=== PATIENT | male | born 1950 | race Caucasian/White ===

== ENCOUNTER 2022-04-13 13:49 | Inpatient (IN) | payer SELFPAY ==
[~2022-04-13] VITALS: Ht 167.6 cm; Wt 60.8 kg
[2022-04-13 14:00] VITALS: BP_SYST 133
--- NOTE | 2022-04-13 14:00 | NUR ---
PATIENT BIBA FROM [facility] IN ROOM 2 ON DIRECTOR SECURITY RISK MANAGEMENT, ST EDP MADE AWARE AWAITING FOR ORDER.
--- NOTE | 2022-04-13 14:07 | NUR ---
Placed in room 2 . Placed on hall monitor, blood pressure machine and pulse oximeter. To gown for exam. Side rails up. Report given to
[2022-04-13 15:21] LABS: BASOPHILS % (AUTO) 0.7 % (0.0-2.0); EOSINOPHILS % (AUTO) 0.7 % (0.0-4.0); HEMATOCRIT 42.4 % (36-54); LYMPHOCYTES # (AUTO) 0.5 K/uL (1.0-5.5); LYMPHOCYTES % (AUTO) 23.3 % (20.5-51.5); MEAN CORPUSCULAR VOLUME 106 fL (79.0-98.0); MONOCYTES # (AUTO) 0.4 K/uL (0.0-1.0); MONOCYTES % (AUTO) 17.1 % (1.7-9.3); NEUTROPHILS # (AUTO) 1.4 K/uL (1.8-7.7); NEUTROPHILS % (AUTO) 58.2 % (40.0-70.0); PLATELET COUNT (AUTO) 182 K/uL (130-430); RED BLOOD CELL COUNT(AUTO) 4.01 MIL/uL (4.2-6.2); RED CELL DISTRIBUTION WIDTH 13.7 % (9.0-15.0); WHITE BLOOD COUNT (AUTO) 2.4 K/uL (4.8-10.8)
[2022-04-13 15:24] LABS: ANION GAP 8 (5-15); CALCIUM 9.6 mg/dL (8.4-11.0); CHLORIDE 100 mmol/L (98-107); GLUCOSE 100 mg/dL (70-99); POTASSIUM 4.1 mmol/L (3.5-5.1); UREA NITROGEN, BLOOD 16 mg/dL (8-21)
[2022-04-13 15:25] LABS: GFR AFRICAN AMERICAN 95 mL/min (>90)
[2022-04-13 15:26] LABS: ACETONE, SERUM NEGATIVE (NEGATIVE)
[2022-04-13 15:27] LABS: INR 1.9 (0.80-1.20)
[2022-04-13 15:32] LABS: ALANINE AMINOTRANSFERASE 29 U/L (12-78); ALBUMIN 3.5 g/dL (3.4-4.8); ASPARTATE AMINOTRANSFERASE 32 U/L (10-37); C-REACTIVE PROTEIN QUANT 5.7 mg/dL (0-0.5); TOTAL BILIRUBIN 2.5 mg/dL (0.0-1.0)
[2022-04-13 15:33] LABS: ACETAMINOPHEN < 1 ug/mL (1-30); ALCOHOL, BLOOD < 3 mg/dL (<10)
--- NOTE | 2022-04-13 17:07 | NUR ---
PATIENT ADMITTED TO DR LILLIAN IBRAHIM, AWAITING FOR BED ASSIGNMENT.
--- NOTE | 2022-04-13 17:27 | NUR ---
Admit bed requested Patient will be admitted to care of . Admitted to MEDSURG unit. Diagnosis ALOC Inpatient (Yes or No) Y Observation (Yes or No) N Orientation concerns or request close to nursing station (Yes or No) N Covid Status NEG On vent or bipap NO Isolation requirements NO Needs a sitter N From Home (Yes or if No enter name of facility) HOMELESS Requires Dialysis (Yes or No) N Med Rec Completed (Yes of No) Y
[2022-04-13] MEDS ORDERED: ACETAMINOPHEN 325 MG TABLET PO PRN ×2 (17:45)
[2022-04-13] MEDS ORDERED: HYDROcodone/ACETAMIN 10-325 MG TAB PO PRN (17:45)
[2022-04-13] MEDS ORDERED: HYDROcodone/ACETAMIN 5-325 MG TAB (NORCO/ VICODIN) PO PRN (17:45)
[2022-04-13] MEDS ORDERED: NALOXONE HCL 0.4 MG/ML AMP (NARCAN) IVP PRN ×2 (17:45)
[2022-04-13] MEDS ORDERED: ONDANSETRON HCL 4 MG/2 ML VIAL IVP PRN (17:45)
--- NOTE | 2022-04-13 18:19 | NUR ---
PATIENT INSTRUCTED WINSOME VOID IN URINAL FOR LAB.
--- NOTE | 2022-04-13 18:45 | NUR ---
Chalino sandoval in [facility] - 04/13/22 at 1846 by [id number] G 8 P 4 CURRENTLY 5 WEEKS HAVING LEFT ABD PAIN
[2022-04-13 20:11] LABS: BILIRUBIN,URINE NEGATIVE (NEGATIVE); COLOR,URINE YELLOW (YELLOW); GLUCOSE,URINE NEGATIVE (NEGATIVE); KETONES,URINE TRACE (NEGATIVE); NITRITE, URINE NEGATIVE (NEGATIVE); PROTEIN URINE TRACE (NEGATIVE)
[2022-04-13 20:22] LABS: BLOOD, URINE TRACE (NEGATIVE); CLARITY/URINE HAZY (CLEAR); LEUKOCYTE ESTERASE ,URINE 2+ (NEGATIVE)
[2022-04-13 20:23] LABS: BARBITURATE, URINE NEGATIVE (NEG <=200); BENZODIAZEPINE, URINE NEGATIVE (NEG <=150); CANNABINOID, URINE NEGATIVE (NEG <=50); COCAINE, URINE NEGATIVE (NEG <=150); METHAMPHETAMINES SCREEN,URINE NEGATIVE (NEG <=500); OPIATE, URINE NEGATIVE (NEG <=100); PHENCYCLIDINE SCREEN,URINE NEGATIVE (NEG <=25); RBC,URINE NONE SEEN /HPF (0-3); UR TRICYCLIC ANTIDEPRESSANTS NEGATIVE (NEG <=300); URINE AMPHETAMINE NEGATIVE (NEG <=500); URINE METHADONE NEGATIVE (NEG <=200); URINE OXYCODONE SCREEN NEGATIVE (NEG <=100); URINE PROPOXYPHENE SCREEN NEGATIVE (NEG <=300); URINE SULFO SALICYLIC ACID NEGATIVE (NEGATIVE)
[2022-04-13 20:24] LABS: BACTERIA,URINE FEW /HPF (None Seen); MUCUS,URINE None Seen /LPF (None Seen); WBC,URINE 20-50 /HPF (0-3)
--- NOTE | 2022-04-13 20:46 | NUR ---
REVEIVED IN BED CONFUSED INCOHERENT , DENIES PAIN WHEN ASSESSED, URINE SAMPLE SENT ORDERED, V/S STABLE WILL CONTINUE TO MONITOR
[2022-04-13] MEDS: NORMAL SALINE 5 ML DISP.SYRIN IVF SCH (22:00)
[2022-04-14 02:30] VITALS: BP_SYST 117
[2022-04-14 06:00] VITALS: BP_SYST 112
--- NOTE | 2022-04-14 06:27 | NUR ---
SEND A MESSAGE TO DR. DESIREE Morales REGARDING THE CONSULTATION
--- NOTE | 2022-04-14 07:15 | NUR ---
SBAR REPORT RECEIVED FROM BRENDA DEL ANGEL, ALL CARES ASSUMED. PT LAYING IN BED WITH EYES CLOSED. BED IN LOW AND LOCKED POSITION. CALL LIGHT WITHIN REACH.
[2022-04-14 07:51] LABS: BASOPHILS % (AUTO) 1.3 % (0.0-2.0); EOSINOPHILS % (AUTO) 1.8 % (0.0-4.0); HEMATOCRIT 39.9 % (36-54); LYMPHOCYTES # (AUTO) 0.6 K/uL (1.0-5.5); LYMPHOCYTES % (AUTO) 24.3 % (20.5-51.5); MEAN CORPUSCULAR VOLUME 105 fL (79.0-98.0); MONOCYTES # (AUTO) 0.5 K/uL (0.0-1.0); MONOCYTES % (AUTO) 23.7 % (1.7-9.3); NEUTROPHILS # (AUTO) 1.1 K/uL (1.8-7.7); NEUTROPHILS % (AUTO) 48.9 % (40.0-70.0); PLATELET COUNT (AUTO) 174 K/uL (130-430); RED CELL DISTRIBUTION WIDTH 13.5 % (9.0-15.0); WHITE BLOOD COUNT (AUTO) 2.3 K/uL (4.8-10.8)
[2022-04-14 08:00] VITALS: BP_SYST 114
[2022-04-14 08:25] LABS: CALCIUM 9.3 mg/dL (8.4-11.0); CREATININE 0.99 mg/dL (0.55-1.30); PHOSPHORUS 3.6 mg/dL (2.7-4.5); POTASSIUM 4.9 mmol/L (3.5-5.1); TOTAL BILIRUBIN 1.8 mg/dL (0.0-1.0)
--- NOTE | 2022-04-14 09:39 | NUR ---
EVALUATION COMPLETED. SEE FOR DETAILS. NURSING SHOULD AMBULATE THE PATIENT WITH THE FWW.
[2022-04-14 11:34] VITALS: BP_SYST 98
[2022-04-14] MEDS: cefTRIAXone 1 GM in D5W 50 ML IV SCH (12:00)
--- NOTE | 2022-04-14 13:19 | NUR ---
Cap And Hat Production Supervisor PARACHUTE PANEL JOINER received several referrals re. this Homeless pt. PARACHUTE PANEL JOINER met with pt. who was in bed, pleasant, soft spoken, but unable to formulate meaningful statements. Pt. looked clean, teeth looked maintained and clean. Pt. had a rip in his t-shirt and two plastic bags with some clothing. Initially, pt. was not able to state his name, then he said his name was Sd. Later in the interview pt. was able to say his name was Sd Ferrera. During this interview, pt. would mumble, say two word sentences that did not pertain to the questions asked. Pt. did mumble he stays with a friend and other times in the interview, pt stated he stays in the streets. One last time pt. stated he stays in the trees. Pt. could not name any relatives or friends. Pt. stated he was not and did not have any kids. It is questionable if pt. comprehends all of PARACHUTE PANEL JOINER's questions as pt. appears confused. PARACHUTE PANEL JOINER looked up a Sd Ferrera in the [facility] and found one. In 11/16/2013 a Sd Ferrera was 75 years of age with a of [birth year], also homeless, no contacts. This could be the same patient. PARACHUTE PANEL JOINER will met with pt. again to attempt to gather more info. Addendum: 04/14/22 at 1412 by Deloris Patel PARACHUTE PANEL JOINER Cap And Hat Production Supervisor PARACHUTE PANEL JOINER met again with pt. at bedside. Pt was awake and willing to talk to PARACHUTE PANEL JOINER. PARACHUTE PANEL JOINER asked pt. if he knew where he was, pt shook his head no. PARACHUTE PANEL JOINER asked pts. name and pt. did not reply. PARACHUTE PANEL JOINER asked pt. if there was someone she could call for him. Pt stated, "What is this about?" PARACHUTE PANEL JOINER explained she was trying to find out if he had any friends or family who could be contacted. Pt. was unable to provide any names or numbers of any friends or family. When PARACHUTE PANEL JOINER asked for his permission to look into his two plastic grocery bags to see if he had any id, pt. said, "Wait what is this about" then Pt. did not agree to allow PARACHUTE PANEL JOINER to go through his bags. Pt. continued to talk in circles and did not make sense. PARACHUTE PANEL JOINER left some homeless resources for pt. in event he becomes an AMA, but PARACHUTE PANEL JOINER does not feel this pt. should be discharged to the streets or sent to a long-term due his limited skills and cognition. PARACHUTE PANEL JOINER placed a homeless waiver in pts. chart. PARACHUTE PANEL JOINER spoke to manager athletics. Chona to ask if the Rn can go throught the pts belongings once he falls asleep to see if he has any identifying info. PARACHUTE PANEL JOINER will remain available as needed.
[2022-04-14] MEDS: NORMAL SALINE 5 ML DISP.SYRIN IVF SCH ×4 (14:00→22:00)
[2022-04-14 15:25] VITALS: BP_SYST 100
--- NOTE | 2022-04-14 19:41 | NUR ---
SBAR REPORT GIVEN TO NIGHT RN, ALL CARES ENDORSED.
[2022-04-14 20:00] VITALS: BP_SYST 105
[2022-04-15] VITALS: BP_SYST 102
[2022-04-15] MEDS: NORMAL SALINE 5 ML DISP.SYRIN IVF SCH ×6 (06:00→22:00)
--- NOTE | 2022-04-15 09:26 | NUR ---
PATIENT WALKING IN THE HALLWAY WITH Sheree FLORES USING FWW.
[2022-04-15 09:47] VITALS: BP_SYST 107
[2022-04-15 10:10] LABS: C-REACTIVE PROTEIN QUANT 2.3 mg/dL (0-0.5); CALCIUM 8.9 mg/dL (8.4-11.0); CREATININE 1.01 mg/dL (0.55-1.30); POTASSIUM 3.9 mmol/L (3.5-5.1)
[2022-04-15] MEDS: cefTRIAXone 1 GM in D5W 50 ML IV SCH (11:33)
--- NOTE | 2022-04-15 12:15 | NUR ---
DOUBLE END SEWER ACSW Jeanine met with patient at bedside to further support identifying patient and possible support network. Patient was observed to be mumbling at a whispered tone. ACSW asked patient if we can look in his belongings and he was heard to say "absolutely not". ACSW made attempts to engage patient, but he was not able to have meaningful engagement at this time. ACSW will continue to be available as needed.
[2022-04-15 13:48] LABS: BASOPHILS % (AUTO) 1.5 % (0.0-2.0); EOSINOPHILS # (AUTO) 0.1 K/uL (0.0-0.4); EOSINOPHILS % (AUTO) 2.7 % (0.0-4.0); HEMATOCRIT 38.4 % (36-54); LYMPHOCYTES # (AUTO) 0.7 K/uL (1.0-5.5); LYMPHOCYTES % (AUTO) 36.2 % (20.5-51.5); MEAN CORPUSCULAR VOLUME 105 fL (79.0-98.0); MONOCYTES # (AUTO) 0.4 K/uL (0.0-1.0); MONOCYTES % (AUTO) 20.2 % (1.7-9.3); NEUTROPHILS % (AUTO) 39.4 % (40.0-70.0); PLATELET COUNT (AUTO) 173 K/uL (130-430); RED BLOOD CELL COUNT(AUTO) 3.64 MIL/uL (4.2-6.2); RED CELL DISTRIBUTION WIDTH 13.6 % (9.0-15.0)
[2022-04-15 14:08] LABS: NEUTROPHILS # (AUTO) 0.8 K/uL (1.8-7.7)
[2022-04-15 15:13] LABS: ERYTHROCYTE SEDIMENTATION RATE 14 MM/HR (0-15)
[2022-04-15 17:34] VITALS: BP_SYST 126
--- NOTE | 2022-04-15 19:21 | NUR ---
PT ENDORSED TO NIGHT RN SERA, HAS BEEN STABLE THE WHOLE SHIFT. STILL UNABLE TO VERIFIED HIS NAME AND .
[2022-04-15 20:00] VITALS: BP_SYST 118
[2022-04-16] VITALS: BP_SYST 121
[2022-04-16] MEDS: NORMAL SALINE 5 ML DISP.SYRIN IVF SCH ×5 (06:23→22:42)
[2022-04-16 08:00] VITALS: BP_SYST 106
[2022-04-16 08:43] LABS: C-REACTIVE PROTEIN QUANT 2.3 mg/dL (0-0.5); CALCIUM 8.9 mg/dL (8.4-11.0); CREATININE 0.92 mg/dL (0.55-1.30); POTASSIUM 3.7 mmol/L (3.5-5.1)
[2022-04-16 09:08] LABS: BASOPHILS % (AUTO) 1.3 % (0.0-2.0); EOSINOPHILS % (AUTO) 1.5 % (0.0-4.0); HEMATOCRIT 40.2 % (36-54); LYMPHOCYTES # (AUTO) 0.9 K/uL (1.0-5.5); LYMPHOCYTES % (AUTO) 30.7 % (20.5-51.5); MEAN CORPUSCULAR VOLUME 105 fL (79.0-98.0); MONOCYTES # (AUTO) 0.4 K/uL (0.0-1.0); MONOCYTES % (AUTO) 14.3 % (1.7-9.3); NEUTROPHILS # (AUTO) 1.5 K/uL (1.8-7.7); NEUTROPHILS % (AUTO) 52.2 % (40.0-70.0); PLATELET COUNT (AUTO) 177 K/uL (130-430); RED BLOOD CELL COUNT(AUTO) 3.84 MIL/uL (4.2-6.2); RED CELL DISTRIBUTION WIDTH 13.3 % (9.0-15.0)
[2022-04-16] MEDS: LORazepam 2 MG/ML VIAL IVP PRN ×2 (10:15→14:57)
[2022-04-16 10:35] LABS: WHITE BLOOD COUNT (AUTO) 2.8 K/uL (4.8-10.8)
[2022-04-16] MEDS: cefTRIAXone 1 GM in D5W 50 ML IV SCH (11:50)
[2022-04-16 11:51] VITALS: BP_SYST 112
[2022-04-16 12:02] LABS: ERYTHROCYTE SEDIMENTATION RATE 23 MM/HR (0-15)
--- NOTE | 2022-04-16 13:23 | NUR ---
Developer Programmer DIRECTOR TRUST met with pt. today. Pt. was still in the same state as DIRECTOR TRUST's last interview, incoherent, did not know where he was, did not know his name, could not answer any of DIRECTOR TRUST's questions. Pt. refused to let DIRECTOR TRUST look for any picture ID in his belongings. DIRECTOR TRUST asked Rn if she can look through pts. belongings when he is sleeping. DIRECTOR TRUST called [facility], and asked if they had a mobile fingerprinting unit. They do not. DIRECTOR TRUST called [facility], to ask if they had a mobile fingerprinting unit and they do not. DIRECTOR TRUST called Joe from [facility] to see if he could be helpful. Joe asked DIRECTOR TRUST to look for and ID that may have been scanned upon pt coming to the ED. DIRECTOR TRUST stated there was a Sd Ferrera who came to [facility] 3 times in 2017. Joe will look to see if there is a picture for a Sd Ferrera . If there is a picture of Sd Ferrera, Joe can share with this DIRECTOR TRUST to see if it is indeed our Naveen Valdiviae. Addendum: 04/16/22 at 1421 by Deloris MONROY Developer Programmer DIRECTOR TRUST called the responding ambulance company that responded with the [facility]. The ambulance co. is [facility], . DIRECTOR TRUST spoke to Alanna who stated notes indicate pt. was found on the corner of [address] near the [facility] [place] [facility] holding onto a pole. No other info. was noted DIRECTOR TRUST spoke to Maurice the maple products supervisor for [facility] who stated Marco A Olivas is from the [facility] and he will pass along DIRECTOR TRUST's info in hopes Brendon could call with any helpful info. DIRECTOR TRUST called [facility], Paula Orlando, , Homeless Outreach. DIRECTOR TRUST left contact phone as Johanny was in a meeting.
[2022-04-16 16:44] VITALS: BP_SYST 117
--- NOTE | 2022-04-16 17:08 | NUR ---
Dietitian Recommendations * Continue Regular diet Please refer to nutrition assessment for details, thanks! Completed by: SAPNA CASTELLANOS Aircraft Quality Control Inspector
[2022-04-16 20:00] VITALS: BP_SYST 127
[2022-04-17] VITALS: BP_SYST 129
[2022-04-17] MEDS: LORazepam 2 MG/ML VIAL IVP PRN (05:14)
[2022-04-17] MEDS: NORMAL SALINE 5 ML DISP.SYRIN IVF SCH ×3 (05:15→22:00)
[2022-04-17 07:41] LABS: CALCIUM 8.9 mg/dL (8.4-11.0); CREATININE 0.9 mg/dL (0.55-1.30); POTASSIUM 4.2 mmol/L (3.5-5.1)
[2022-04-17 07:42] LABS: BASOPHILS % (AUTO) 1.1 % (0.0-2.0); EOSINOPHILS % (AUTO) 0.7 % (0.0-4.0); HEMATOCRIT 42.9 % (36-54); LYMPHOCYTES # (AUTO) 0.9 K/uL (1.0-5.5); MEAN CORPUSCULAR VOLUME 106 fL (79.0-98.0); MONOCYTES # (AUTO) 0.5 K/uL (0.0-1.0); MONOCYTES % (AUTO) 14.8 % (1.7-9.3); NEUTROPHILS # (AUTO) 2.1 K/uL (1.8-7.7); NEUTROPHILS % (AUTO) 58.4 % (40.0-70.0); PLATELET COUNT (AUTO) 175 K/uL (130-430); RED BLOOD CELL COUNT(AUTO) 4.04 MIL/uL (4.2-6.2); RED CELL DISTRIBUTION WIDTH 13.1 % (9.0-15.0); WHITE BLOOD COUNT (AUTO) 3.6 K/uL (4.8-10.8)
[2022-04-17 08:00] VITALS: BP_SYST 93
[2022-04-17 11:27] VITALS: BP_SYST 115
[2022-04-17 12:00] LABS: ERYTHROCYTE SEDIMENTATION RATE 28 MM/HR (0-15)
[2022-04-17] MEDS: cefTRIAXone 1 GM in D5W 50 ML IV SCH (12:00)
[2022-04-17 16:39] VITALS: BP_SYST 116
[2022-04-17 20:00] VITALS: BP_SYST 118
--- NOTE | 2022-04-18 06:00 | NUR ---
[id number] CONT. WITH STBLE VS. PT HS BEEN A/OX2-3. PT IS CONFUSE AT TIMES. PT AMB. TO BR WITH MINIMAL ASST. PT HAS BEEN VOIDING WELL/NO STOOL. PT SLEEPING AT TIMES. PT ENDORSED TO DAYSHIFT RN IN STABLE COND. ALEXANDRO DEL ANGEL
[2022-04-18 08:00] VITALS: BP_SYST 111
[2022-04-18 08:01] LABS: BASOPHILS % (AUTO) 1.3 % (0.0-2.0); EOSINOPHILS # (AUTO) 0.1 K/uL (0.0-0.4); EOSINOPHILS % (AUTO) 2.9 % (0.0-4.0); HEMATOCRIT 39.4 % (36-54); LYMPHOCYTES # (AUTO) 1.1 K/uL (1.0-5.5); LYMPHOCYTES % (AUTO) 37.5 % (20.5-51.5); MEAN CORPUSCULAR VOLUME 105 fL (79.0-98.0); MONOCYTES # (AUTO) 0.5 K/uL (0.0-1.0); MONOCYTES % (AUTO) 15.8 % (1.7-9.3); NEUTROPHILS # (AUTO) 1.3 K/uL (1.8-7.7); NEUTROPHILS % (AUTO) 42.5 % (40.0-70.0); PLATELET COUNT (AUTO) 163 K/uL (130-430); RED BLOOD CELL COUNT(AUTO) 3.75 MIL/uL (4.2-6.2); RED CELL DISTRIBUTION WIDTH 13.1 % (9.0-15.0)
[2022-04-18 08:02] LABS: ALBUMIN 2.8 g/dL (3.4-4.8); C-REACTIVE PROTEIN QUANT 9.1 mg/dL (0-0.5); CREATININE 0.81 mg/dL (0.55-1.30); POTASSIUM 4.7 mmol/L (3.5-5.1); TOTAL BILIRUBIN 1.3 mg/dL (0.0-1.0)
[2022-04-18 12:25] VITALS: BP_SYST 102
[2022-04-18] MEDS: cefTRIAXone 1 GM in D5W 50 ML IV SCH (12:34)
[2022-04-18 12:39] LABS: ERYTHROCYTE SEDIMENTATION RATE 33 MM/HR (0-15)
[2022-04-18] MEDS: NORMAL SALINE 5 ML DISP.SYRIN IVF SCH ×2 (14:00→23:21)
--- NOTE | 2022-04-18 15:52 | NUR ---
NEURO CONSULT DR RAMÍREZ WAS CALLED RE: TO INFORM THAT ADMINISTRATION HAS AGREED TO PAY HIS PROF FEE. SPOKE TO PREMA.
[2022-04-18 16:09] VITALS: BP_SYST 117
[2022-04-18 19:20] VITALS: BP_SYST 98
--- NOTE | 2022-04-18 19:20 | NUR ---
PM ASSESSMENT; -Pt is a/xo1, resting in bed. NO s/s any acute distress noted. IV site patent drsg cdi. Fall precaution in place. Call light w/in reach, side rails x3, bed alarmed. Places near Nurses' station. Educated and instructed pt how to use call light for assistance and not to get OOB without using call, unable to discuss plan of care d/t cognitive limitation. Cont to monitor pt.
[2022-04-18 23:21] VITALS: BP_SYST 104
--- NOTE | 2022-04-18 23:21 | NUR ---
ROUNDS; -Pt is resting in bed comfortably. NO s/s any pain,sob,or any acute distress noted. VSS. Bed alarmed, side rails x3, call light w/in reach. Cont to monitor pt.
--- NOTE | 2022-04-19 03:20 | NUR ---
ROUNDS; -Pt just got OOB w/out using a call light w/in reach. Assisted pt to bathroom and returned to bed safely. Bed alarmed, side rails x3, call light w/in reach. Cont to monitor pt.
[2022-04-19] MEDS: NORMAL SALINE 5 ML DISP.SYRIN IVF SCH ×3 (06:40→21:10)
--- NOTE | 2022-04-19 06:54 | NUR ---
CLOSING NOTES; -Pt awakes, sitting dangling feet in the bed eating snack. Pt refused to return to bed this time. Reminded pt to use call light whenever needs assistance, pt nodded head. Call light w/in reach, side rails x2. Will endorse to next nurse to cont care.
[2022-04-19 08:00] VITALS: BP_SYST 128
[2022-04-19 09:10] LABS: C-REACTIVE PROTEIN QUANT 5.1 mg/dL (0-0.5); CALCIUM 8.9 mg/dL (8.4-11.0); CREATININE 0.87 mg/dL (0.55-1.30); POTASSIUM 3.8 mmol/L (3.5-5.1)
[2022-04-19] MEDS: LORazepam 2 MG/ML VIAL IVP PRN (10:10)
[2022-04-19 11:45] VITALS: BP_SYST 116
[2022-04-19] MEDS: cefTRIAXone 1 GM in D5W 50 ML IV SCH (13:45)
[2022-04-19 14:10] LABS: BASOPHILS % (AUTO) 1.1 % (0.0-2.0); EOSINOPHILS # (AUTO) 0.1 K/uL (0.0-0.4); EOSINOPHILS % (AUTO) 4.3 % (0.0-4.0); HEMATOCRIT 38.6 % (36-54); LYMPHOCYTES # (AUTO) 0.8 K/uL (1.0-5.5); LYMPHOCYTES % (AUTO) 36.7 % (20.5-51.5); MEAN CORPUSCULAR VOLUME 104 fL (79.0-98.0); MONOCYTES # (AUTO) 0.3 K/uL (0.0-1.0); MONOCYTES % (AUTO) 15.3 % (1.7-9.3); NEUTROPHILS % (AUTO) 42.6 % (40.0-70.0); PLATELET COUNT (AUTO) 176 K/uL (130-430); RED CELL DISTRIBUTION WIDTH 13.5 % (9.0-15.0); WHITE BLOOD COUNT (AUTO) 2.2 K/uL (4.8-10.8)
[2022-04-19 15:20] VITALS: BP_SYST 120
[2022-04-19 17:16] LABS: ERYTHROCYTE SEDIMENTATION RATE 24 MM/HR (0-15)
[2022-04-19 19:15] VITALS: BP_SYST 107
--- NOTE | 2022-04-19 19:15 | NUR ---
PM ASSESSMENT; -Pt is off the craig soft wrist restraint this time. -Pt is a/xo1, resting in bed. NO s/s any acute distress noted. IV site patent drsg cdi. Fall precaution in place. Call light w/in reach, side rails x3, bed alarmed. Places near Nurses' station. Educated and instructed pt how to use call light for assistance and not to get OOB without using call, unable to discuss plan of care d/t cognitive limitation. Cont to monitor pt.
--- NOTE | 2022-04-19 22:05 | NUR ---
ROUNDS; -Pt is resting in bed comfortably. NO s/s any pain,sob,or any acute distress noted. Bed alarmed, side rails x3, call light w/in reach. Cont to monitor pt.
--- NOTE | 2022-04-20 00:22 | NUR ---
ROUNDS; -Pt got OOB to use bathroom w/o using call light. Assisting pt to bathroom, pt just voided and returned back to bed safely. NO s/s any pain,sob,or any acute distress noted. Pt is still confused and is not able to use call light d/t cognitive limitation. Bed alarmed, side rails x3, call light w/in reach. Cont to monitor pt.
[2022-04-20 00:49] VITALS: BP_SYST 95
--- NOTE | 2022-04-20 03:32 | NUR ---
ROUNDS; -Pt is asleep. NO s/s any pain,sob,or any acute distress noted. Bed alarmed, side rails x3, call light w/in reach. Cont to monitor pt.
[2022-04-20] MEDS: NORMAL SALINE 5 ML DISP.SYRIN IVF SCH ×3 (05:00→21:19)
--- NOTE | 2022-04-20 06:30 | NUR ---
ROUNDS; -Pt is asleep. NO s/s any pain,sob,or any acute distress noted. Fall precaution in place entire shift. Bed alarmed, side rails x3, call light w/in reach. Will endorse to next nurse to cont care.
[2022-04-20 07:30] VITALS: BP_SYST 122
--- NOTE | 2022-04-20 07:30 | NUR ---
OPEN NOTE Received report from nightshift nurse. Patient is laying in bed resting. No pain, no SOB, no distress noted. A/O x 1-2english speaking. Patient on RA sating 99%. IV to FFA 22g, patent on SL. Patient on bedrest . Call light within reach, bed locked in lowest position, all needs met at this time. Will continue to monitor.
[2022-04-20 11:34] VITALS: BP_SYST 132
--- NOTE | 2022-04-20 12:00 | NUR ---
Patient Rounds Patient is laying in bed resting. No pain, no SOB, no distress noted. Patient on RA sating 99%. IV to FFA 22g, patent on SL. Patient on bedrest . Call light within reach, bed locked in lowest position, all needs met at this time. Will continue to monitor.
[2022-04-20] MEDS: cefTRIAXone 1 GM in D5W 50 ML IV SCH (12:12)
--- NOTE | 2022-04-20 15:18 | NUR ---
Patient Rounds Patient is laying in bed resting. No pain, no SOB, no distress noted. Patient on RA sating 99%. IV to LFA 22g, patent on SL. Patient on bedrest . Call light within reach, bed locked in lowest position, all needs met at this time. Will continue to monitor.
[2022-04-20 15:29] VITALS: BP_SYST 108
[2022-04-20 15:51] LABS: BASOPHILS % (AUTO) 1.4 % (0.0-2.0); EOSINOPHILS # (AUTO) 0.1 K/uL (0.0-0.4); EOSINOPHILS % (AUTO) 3.5 % (0.0-4.0); HEMATOCRIT 37.6 % (36-54); LYMPHOCYTES # (AUTO) 0.9 K/uL (1.0-5.5); LYMPHOCYTES % (AUTO) 39.6 % (20.5-51.5); MEAN CORPUSCULAR VOLUME 106 fL (79.0-98.0); MONOCYTES # (AUTO) 0.3 K/uL (0.0-1.0); NEUTROPHILS # (AUTO) 1.1 K/uL (1.8-7.7); NEUTROPHILS % (AUTO) 44.5 % (40.0-70.0); PLATELET COUNT (AUTO) 189 K/uL (130-430); RED BLOOD CELL COUNT(AUTO) 3.54 MIL/uL (4.2-6.2); RED CELL DISTRIBUTION WIDTH 13.5 % (9.0-15.0); WHITE BLOOD COUNT (AUTO) 2.4 K/uL (4.8-10.8)
[2022-04-20 16:29] LABS: CALCIUM 8.9 mg/dL (8.4-11.0); CREATININE 0.78 mg/dL (0.55-1.30)
--- NOTE | 2022-04-20 18:37 | NUR ---
CLOSING NOTE Patient is laying in bed resting. No pain, no SOB, no distress noted. A/O x 1-2english speaking. Patient on RA sating 99%. IV to LFA 22g, patent on SL. Patient on bedrest but is able to ambulate with assistance to restroom. Call light within reach, bed locked in lowest position, all needs met at this time. Will endorse to cnc machinist 2nd shift nurse.
[2022-04-20 21:00] VITALS: BP_SYST 129
[2022-04-21 01:07] LABS: ERYTHROCYTE SEDIMENTATION RATE 16 MM/HR (0-15)
[2022-04-21 02:00] VITALS: BP_SYST 132
--- NOTE | 2022-04-21 03:33 | NUR ---
Hourly Rounding patient awake assist out of bed to Rest Room ambulates unsteady gait , FALL RISK measures implemented no SOB noted procedures explained skin dry warm Respirations Remain Regular also unlabored / .
--- NOTE | 2022-04-21 04:15 | NUR ---
Patient Rip out IV / left F/A
--- NOTE | 2022-04-21 06:05 | NUR ---
New IV start 22 GAUGE RIGHT F/A Tolerated site clean & dry patent flush well / good .
[2022-04-21] MEDS: NORMAL SALINE 5 ML DISP.SYRIN IVF SCH ×3 (06:44→21:52)
[2022-04-21 08:00] VITALS: BP_SYST 136
--- NOTE | 2022-04-21 08:00 | NUR ---
Initial Notes Patient is AOx1. Patient verbal but starts mumbling. Ambulatory. Confused. No s.s of distress noted. Breathing is even and nonlabored, on room air. Vital signs obtained, as documented. No SOB noted, no facial grimace noted. Denies pain. HOB elevated, patient is eating breakfast. Bed at lowest position, alarm on, and bed locked. Call light within reach.
[2022-04-21 08:04] LABS: BASOPHILS % (AUTO) 0.9 % (0.0-2.0); EOSINOPHILS # (AUTO) 0.1 K/uL (0.0-0.4); EOSINOPHILS % (AUTO) 4.4 % (0.0-4.0); HEMATOCRIT 37.4 % (36-54); LYMPHOCYTES % (AUTO) 44.5 % (20.5-51.5); MEAN CORPUSCULAR VOLUME 105 fL (79.0-98.0); MONOCYTES # (AUTO) 0.3 K/uL (0.0-1.0); MONOCYTES % (AUTO) 13.2 % (1.7-9.3); PLATELET COUNT (AUTO) 178 K/uL (130-430); RED BLOOD CELL COUNT(AUTO) 3.57 MIL/uL (4.2-6.2); RED CELL DISTRIBUTION WIDTH 13.3 % (9.0-15.0); WHITE BLOOD COUNT (AUTO) 2.4 K/uL (4.8-10.8)
[2022-04-21 08:25] LABS: ALBUMIN 2.8 g/dL (3.4-4.8); CALCIUM 8.3 mg/dL (8.4-11.0); CREATININE 0.82 mg/dL (0.55-1.30); POTASSIUM 4.7 mmol/L (3.5-5.1); TOTAL BILIRUBIN 0.6 mg/dL (0.0-1.0)
[2022-04-21 10:36] LABS: C-REACTIVE PROTEIN QUANT 1.9 mg/dL (0-0.5)
[2022-04-21 11:30] VITALS: BP_SYST 109
[2022-04-21 11:55] LABS: NEUTROPHILS # (AUTO) 0.9 K/uL (1.8-7.7)
--- NOTE | 2022-04-21 12:00 | NUR ---
Notes Patient resting in bed, awake. No s.s of distress noted. No facial grimace noted. Bed at lowest position, alarm on, and bed locked. Call light within reach.
[2022-04-21 13:07] LABS: ERYTHROCYTE SEDIMENTATION RATE 23 MM/HR (0-15)
--- NOTE | 2022-04-21 13:23 | NUR ---
Pointer Machine Operator THAW SHED HEATER TENDER met with pt. who was finishing up his lunch. Pt. was talking softly, barely audible. Today he said his name was Naveen Beaver. THAW SHED HEATER TENDER asked if there was someone she could call for him. Pt. was just mumbling. Pt. will not allow THAW SHED HEATER TENDER to look through his two plastic bags of belonging. THAW SHED HEATER TENDER asked Terri Rn is she could as Rn. Austin to look for an ID, once pt. falls asleep. Water Pollution Control Inspector will do so.
--- NOTE | 2022-04-21 14:56 | NUR ---
Wound Evaluation: Wound Consult ordered for Low Jesus Score. Patient evaluated for a low Jesus score of 18. Patient was awake, alert, confused, and received in a [place] Bed with an IsoFlex TERESA mattress. Patient needs reminders to turn in bed. Skin Assessment: 1. Right Parietal area: Wound from fall at residence, present on admission. Wound bed has 100% brown scab. No odor, no drainage, no erythema, no calor. Dry, stable. Scab measures 1.6 cm x 0.9 cm. Recommend: No dressing needed. Continue to monitor site qshift. 2. Right Anterior Knee: Multiple small dry excoriations, present on admission. No odor, no drainage, no erythema, no calor. Dry, stable. Recommend: No dressing needed. Continue to monitor site qshift. 3. Right Lateral Knee: Chronic wound with black scab, present on admission. No odor, no drainage, no erythema, no calor. Dry, stable. Recommend: No dressing needed. Continue to monitor site qshift. Also recommend: Encourage and assist patient as needed with repositioning every 2 hours with pillow support. Elevate, off-load and float bilateral heels with pillows. Offload pressure areas with pillows for pressure re-distribution. Perform skin care and monitor skin integrity Q shift. Use moisture barrier cream on moisture susceptible areas QID and PRN for soiling.
[2022-04-21 15:36] VITALS: BP_SYST 93
--- NOTE | 2022-04-21 16:11 | NUR ---
Notes Patient is resting, eyes closed. Breathing is even and nonlabored, on room air. Safety precautions in place. Exist alarm on. Call light within reach.
--- NOTE | 2022-04-21 19:29 | NUR ---
Closing Notes Patient finished dinner. Patient is resting in bed, eyes closed. No s.s of distress noted. Breathing is even and nonlabored, on room air. No facial grimace noted. No SOB. Denies pain. All needs met. Safety precautions in place and call light within reach. Report given to MER Mandel.
[2022-04-21 21:44] VITALS: BP_SYST 113
[2022-04-21] MEDS: CEFTAZIDIME 1 GM in D5W 50 ML IV SCH (21:53)
[2022-04-22 01:25] VITALS: BP_SYST 94
[2022-04-22 06:57] LABS: BASOPHILS % (AUTO) 1.2 % (0.0-2.0); EOSINOPHILS # (AUTO) 0.1 K/uL (0.0-0.4); EOSINOPHILS % (AUTO) 3.3 % (0.0-4.0); HEMATOCRIT 37.1 % (36-54); LYMPHOCYTES # (AUTO) 0.9 K/uL (1.0-5.5); MEAN CORPUSCULAR VOLUME 104 fL (79.0-98.0); MONOCYTES # (AUTO) 0.3 K/uL (0.0-1.0); MONOCYTES % (AUTO) 13.1 % (1.7-9.3); NEUTROPHILS % (AUTO) 43.4 % (40.0-70.0); PLATELET COUNT (AUTO) 181 K/uL (130-430); RED BLOOD CELL COUNT(AUTO) 3.57 MIL/uL (4.2-6.2); RED CELL DISTRIBUTION WIDTH 13.1 % (9.0-15.0); WHITE BLOOD COUNT (AUTO) 2.3 K/uL (4.8-10.8)
[2022-04-22] MEDS: NORMAL SALINE 5 ML DISP.SYRIN IVF SCH ×3 (06:59→22:03)
[2022-04-22 07:19] LABS: C-REACTIVE PROTEIN QUANT 0.9 mg/dL (0-0.5); CALCIUM 8.7 mg/dL (8.4-11.0); CREATININE 0.93 mg/dL (0.55-1.30); POTASSIUM 4.2 mmol/L (3.5-5.1)
[2022-04-22 08:00] VITALS: BP_SYST 115
[2022-04-22] MEDS: CEFTAZIDIME 1 GM in D5W 50 ML IV SCH ×2 (08:33→20:26)
[2022-04-22 08:41] LABS: ERYTHROCYTE SEDIMENTATION RATE 18 MM/HR (0-15)
[2022-04-22 12:00] VITALS: BP_SYST 112
[2022-04-22 16:00] VITALS: BP_SYST 111
[2022-04-22 20:00] VITALS: BP_SYST 97
[2022-04-23 00:34] VITALS: BP_SYST 133
[2022-04-23 03:36] VITALS: BP_SYST 160
--- NOTE | 2022-04-23 04:18 | NUR ---
PATIENT IN BED RESTING, VERBALIZED NO C/O PAIN, CONTINENT TO TOLIET AND URINAL OF BLADDER, AND NO BM DURING THIS SHIFT. PATIENT TOOK ALL MEDS DURING THIS SHIFT WITH NO DIFFICULTIES. PATIENT HAS NO NEW WOUNDS NOTED AT THIS TIME. PATIENT HAS DIFFICULTY EXPRESSING HIMSELF AT TIMES.
[2022-04-23] MEDS: NORMAL SALINE 5 ML DISP.SYRIN IVF SCH ×2 (05:11→14:00)
--- NOTE | 2022-04-23 07:31 | NUR ---
PHYSICAL THERAPY CO-SIGN The Physical Therapy Progress Notes documented by Squash Centre Manager have been reviewed. Reviewed/Co-Signed by: Vasquez Buchanan Documentation Done by: FRANCISCO PARRA PTA Addendum: 04/23/22 at 0731 by Vasquez Buchanan PT Amended: Links added.
[2022-04-23 07:53] LABS: BASOPHILS % (AUTO) 1.1 % (0.0-2.0); EOSINOPHILS # (AUTO) 0.1 K/uL (0.0-0.4); HEMATOCRIT 37.5 % (36-54); LYMPHOCYTES # (AUTO) 0.8 K/uL (1.0-5.5); LYMPHOCYTES % (AUTO) 28.8 % (20.5-51.5); MEAN CORPUSCULAR VOLUME 104 fL (79.0-98.0); MONOCYTES # (AUTO) 0.4 K/uL (0.0-1.0); NEUTROPHILS # (AUTO) 1.5 K/uL (1.8-7.7); NEUTROPHILS % (AUTO) 53.1 % (40.0-70.0); PLATELET COUNT (AUTO) 194 K/uL (130-430); RED BLOOD CELL COUNT(AUTO) 3.62 MIL/uL (4.2-6.2); RED CELL DISTRIBUTION WIDTH 13.1 % (9.0-15.0); WHITE BLOOD COUNT (AUTO) 2.8 K/uL (4.8-10.8)
[2022-04-23 08:00] VITALS: BP_SYST 119
[2022-04-23 08:00] LABS: CALCIUM 8.3 mg/dL (8.4-11.0); CREATININE 0.82 mg/dL (0.55-1.30); POTASSIUM 3.9 mmol/L (3.5-5.1)
--- NOTE | 2022-04-23 08:30 | NUR ---
RESTAURANT AND BAR MANAGER SHOSHANA Solorzano contacted [place] [employer] to obtain information/support with patient identification. ACSSyeda spoke to Fax Machine Operator on duty who shared they are unable to review any finger prints that would be brought in, and finger prints can only be taken on person's being detained by law enforcement. Fax Machine Operator stated he can "possibly" support if hospital can obtain a front facing picture of patient, police department can scan through facial recognition. Addendum: 04/23/22 at 1638 by Jeanine MONROY SHOSHANA Solorzano received pictures of patient and were emailed to [place] [employer] Fax Machine Operator [email or web address]
[2022-04-23] MEDS: CEFTAZIDIME 1 GM in D5W 50 ML IV SCH (08:51)
[2022-04-23 11:27] VITALS: BP_SYST 110
--- NOTE | 2022-04-23 12:51 | NUR ---
Capping Machine Operator PRESIDENT/GM PRODUCTION & LIVE EXPERIENCES Jorge and PRESIDENT/GM PRODUCTION & LIVE EXPERIENCES Stephenson went to meet with pt. to see if they could go through pts. 2 plastic grocery bags of belongings. Pt. was very on guard and quickly became upset when PRESIDENT/GM PRODUCTION & LIVE EXPERIENCES moved the rolling table (for trays of food). PRESIDENT/GM PRODUCTION & LIVE EXPERIENCES told pt. she wanted to move the table so she could get closer to him to hear him. Pt. tried to move the table to block the bedside table closed. Pt. does not want PRESIDENT/GM PRODUCTION & LIVE EXPERIENCES to look through his belongings. PRESIDENT/GM PRODUCTION & LIVE EXPERIENCES is hoping to look in his belongings for a possible ID, maybe a phone with some contacts etc. Pt. is not allowing PRESIDENT/GM PRODUCTION & LIVE EXPERIENCES to look. PRESIDENT/GM PRODUCTION & LIVE EXPERIENCES spoke with Jossie Sharp who suggested at some point we may need to have security come so that staff can look into pts. bags. Rn. added pt. is a light sleeper and awakens if there is movement making it hard for the Rns. to look through pts. bags. PRESIDENT/GM PRODUCTION & LIVE EXPERIENCES asked Rn to call her once pt. gets up to use the restroom. Would Care Richard Sethi will take a picture of pt. today and this picture can be sent to law enforcement for "Facial Recognition" attempts. PRESIDENT/GM PRODUCTION & LIVE EXPERIENCES will remain available as needed. Addendum: 04/23/22 at 1402 by Deloris Patel PRESIDENT/GM PRODUCTION & LIVE EXPERIENCES Capping Machine Operator PRESIDENT/GM PRODUCTION & LIVE EXPERIENCES met with Pt. again. Pt. was lying down, calm and quiet. PRESIDENT/GM PRODUCTION & LIVE EXPERIENCES was talking to pt. in a low and inquisitive voice. Pt. mumbles and does not make sense in his replies. Pt. said, "What did I do" PRESIDENT/GM PRODUCTION & LIVE EXPERIENCES attempted to explain to pt. he did nothing wrong. PRESIDENT/GM PRODUCTION & LIVE EXPERIENCES is trying to find out his name so he can stay at the hospital. PRESIDENT/GM PRODUCTION & LIVE EXPERIENCES asked pt. if he could write down his name and tried to hand him a pad of paper and pen. Pt. refused to take it and said, "No thank you" and "What did i do?" PRESIDENT/GM PRODUCTION & LIVE EXPERIENCES again said he did nothing wrong. PRESIDENT/GM PRODUCTION & LIVE EXPERIENCES said she was just trying to help him and wanted to know his name. PRESIDENT/GM PRODUCTION & LIVE EXPERIENCES asked pt. where does he stay at night. Pt chuckled. PRESIDENT/GM PRODUCTION & LIVE EXPERIENCES asked pt. again if he was homeless and again, pt. just chuckled. PRESIDENT/GM PRODUCTION & LIVE EXPERIENCES asked a few times if pt. would be willing to write down his name. Pt. refused.
[2022-04-23 14:53] LABS: ERYTHROCYTE SEDIMENTATION RATE 21 MM/HR (0-15)
[2022-04-23 15:30] VITALS: BP_SYST 120
--- NOTE | 2022-04-23 19:30 | NUR ---
PT AWAKE,CONFUSED,WAS LAST SEEN AMBULATED TO BATHROOM @191,HOWEVER WHEN MARKETING AMBASSADOR NURSE CAME FOR BEDSIDE REPORT,PT NOT FOUND IN THE ROOM WITH ALL BELONGINGS MISSING,SECURITY CALLED AND LOOKED OVER THE FLOOR PT NOT FOUND STILL.BOTH AM AND MARKETING AMBASSADOR PSYCHOLOGIST CLINICAL NOTIFIED AND SENIOR MARKETING DATA ANALYST NOTIFIED OF PT ELOPED,CALLED [facility] SINCE PT ELOPED WITH IV ACCESS PER POLICY.CALLED [facility] [employer] AND REPORTED PT ELOPED WITH IV ACCESS TO DEPUTY COLMENARES.
== END 2022-04-23 19:25 | disposition left against medical advice (07) | DRG 872 ==
LOC: SED 13:49 → SMU 16:31
PROVIDERS: ADMIT Preventive Medicine Preventive Medicine/Occupational Environmental Medicine; ATTEND Preventive Medicine Preventive Medicine/Occupational Environmental Medicine
PROC: 4A00X4Z Measurement of Central Nervous Electrical Activity, External Approach (ICD-10-PCS; principal; 2022-04-19)
DX: A41.9 Sepsis, unspecified organism (principal); N39.0 Urinary tract infection, site not specified; G93.40 Encephalopathy, unspecified; E87.2 Acidosis; E87.1 Hypo-osmolality and hyponatremia; B96.1 Klebsiella pneumoniae [K. pneumoniae] as the cause of diseases classified elsewhere; D72.819 Decreased white blood cell count, unspecified; Z20.822 Contact with and (suspected) exposure to COVID-19; E88.09 Other disorders of plasma-protein metabolism, not elsewhere classified; G93.89 Other specified disorders of brain; I69.320 Aphasia following cerebral infarction
CPT/HCPCS: 36415; 70450-TC; 71045; 76376; 80048; 80053; 80307; 81000; 82009; 82140; 82550; 83605; 83735; 84100; 84484; 85025; 85610-TC; 85651-TC; 86140; 87040; 87086; 93005; 95816; 97112-GP; 97116-GP; 97530-GP; 99285; G0480; G0481; G0482; J0696; J0713; J2060; J7060